=== PATIENT | female | born 1985 | race Caucasian/White ===

== ENCOUNTER → 2020-04-24 | Outpatient (CLI) | payer OTHER | END | disposition home or self-care (01) | LOC: PRENATAL 08:27 | PROVIDERS: ATTEND Obstetrics & Gynecology Maternal & Fetal Medicine | DX: O35.0XX1 Maternal care for (suspected) central nervous system malformation in fetus, fetus 1 (principal); O35.3XX1 Maternal care for (suspected) damage to fetus from viral disease in mother, fetus 1; O98.512 Other viral diseases complicating pregnancy, second trimester; O99.891 Other specified diseases and conditions complicating pregnancy; Z36.89 Encounter for other specified antenatal screening; Z3A.24 24 weeks gestation of pregnancy ==

== ENCOUNTER 2020-08-11 16:06 | Inpatient (IN) | payer OTHER ==
[~2020-08-11] VITALS: Ht 170.2 cm; Wt 74.8 kg
[2020-08-11] MEDS ORDERED: LEVOTHYROXINE137 MCG PO (17:07)
[2020-08-11] MEDS ORDERED: PRENATAL TABLE1 EAC1 PO (17:08)
[2020-08-14] MEDS ORDERED: CODE1TAB37 PO (08:07)
[2020-08-14] MEDS ORDERED: IBUPROFEN600 MG PO (08:07)
== END 2020-08-14 12:42 | disposition home or self-care (01) | DRG 788 ==
LOC: OB/GYN 16:06 → LDR 16:06 → O/R 08-12 01:06 → OB/GYN 08-12 01:52
PROVIDERS: ADMIT Obstetrics & Gynecology; ATTEND Obstetrics & Gynecology
PROC: 10D00Z1 Extraction of Products of Conception, Low, Open Approach (ICD-10-PCS; principal; 2020-08-12)
PROC: 4A1HXFZ Monitoring of Products of Conception, Cardiac Rhythm, External Approach (ICD-10-PCS; 2020-08-12)
DX: O13.4 Gestational [pregnancy-induced] hypertension without significant proteinuria, complicating childbirth (principal); Z3A.39 39 weeks gestation of pregnancy; Z37.0 Single live birth; Z20.822 Contact with and (suspected) exposure to COVID-19